=== PATIENT | female | born 1935 | race Caucasian/White ===

== ENCOUNTER 2019-06-15 06:08 | Inpatient (IN) | payer MEDICARE, OTHER ==
[~2019-06-15] VITALS: Ht 162.6 cm; Wt 65.3 kg
[~2019-06-15 06:08] MED LIST: Advil Migraine200 MG PO; Armour Thyroid90 MG PO; BORON PO; CHOLINE PO; COLLAGEN PO; GLUCOSAMINE1000 MG PO; HYALURONIC ACI1 EACH PO; LEVSOD50; MAGCHL64ER PO; MSM PO; OPTIFLEX-C400 MG PO; Percocet 10-321 EACH PO; SILICA PO; VITAMIN D32000 UNIT PO; Zofran Odt4 MG SL
--- NOTE | 2019-06-15 06:45 | NUR ---
PT ADMITTED TO [facility]. AGREES WITH PLANNED SURGERY. LUNG SOUNDS CLEAR. PT STATES 5 DAYS OF MUPIROCIN OINMENT AND CHLORHESIDINE SHOWERS.
--- NOTE | 2019-06-15 07:05 | NUR ---
NOXIN TO NARES BILATERALLY
--- NOTE | 2019-06-15 11:40 | NUR ---
PT MEDICATED WITH TORADOL PER JUSTINE. MANINDER MAIER AT BEDSIDE. PT SIPPING WATER.
--- NOTE | 2019-06-15 13:00 | NUR ---
PT MEDICATED WITH 1 OXY PO PER EMAR. PT TOLERATING PO WITHOUT NAUSEA. NO COMPLAINTS OR NEEDS AT THIS TIME. FAMILY LEAVING FOR LUNCH.
--- NOTE | 2019-06-15 13:20 | NUR ---
PT TO ROOM TO WORK WITH PT.
--- NOTE | 2019-06-15 14:11 | NUR ---
PT SITTING UP IN CHAIR. VOIDED WITH PT. CALL LIGHT IN REACH. PER PHYSICAL THERAPIST, PT VERY WOBBLY AND AT HIGH RISK FOR POTENTIAL DISLOCATION.
--- NOTE | 2019-06-15 15:36 | NUR ---
PT STILL WORKING WITH OT. PT UP IN [place] WITH THERAPIST.
--- NOTE | 2019-06-15 16:45 | NUR ---
PT MEDICATED WITH ANCEF, TYLENOL AND OXYCODONE PER EMAR. PT UP IN CHAIR. ICE TO [facility] REFRESHED.
--- NOTE | 2019-06-15 17:24 | NUR ---
DINNER TRAY PROVIDED.
--- NOTE | 2019-06-15 18:33 | NUR ---
CARE ASSUMED OF PT AT APPROXIMATELY 1730. PT ALERT AND ORIENTED. WILL MONITOR UNTIL REPORT TO ONCOMING RN.
[2019-06-16 04:57] LABS: BASOPHILS ABSOLUTE AUTO 0.01 K/mm3 (0.00-0.23); BASOPHILS PERCENT AUTO 0 % (0-2); EOSINOPHILS ABSOLUTE AUTO 0.02 K/mm3 (0.00-0.68); EOSINOPHILS PERCENT AUTO 0 % (0-6); Hematocrit 31.3 % (33.0-51.0); Hemoglobin 10.4 g/dL (11.5-16.0); IMMATURE GRAN ABSOLUTE AUTO 0.03 K/mm3 (0.00-0.10); IMMATURE GRAN PERCENT AUTO 0 % (0-1); LYMPHOCYTES ABSOLUTE AUTO 1.44 K/mm3 (0.84-5.20); LYMPHOCYTES PERCENT AUTO 14 % (21-46); MONOCYTES ABSOLUTE AUTO 1.05 K/mm3 (0.16-1.47); MONOCYTES PERCENT AUTO 10 % (4-13); Mean Corpuscular HGB 30.7 pg (26.0-34.0); Mean Corpuscular HGB Conc 33.2 g/dL (31.5-36.5); Mean Corpuscular Volume 92 fL (80-100); Mean Platelet Volume 10.2 fL (9.1-12.4); NEUTROPHILS ABSOLUTE AUTO 7.79 K/mm3 (1.96-9.15); NEUTROPHILS PERCENT AUTO 75 % (41-73); Platelet Count 211 K/mm3 (150-400); RDW Coefficient Variation 12.7 % (11.7-14.2); RDW Standard Deviation 42.8 fL (35.1-46.3); Red Blood Cell Count 3.39 M/mm3 (3.80-5.20); White Blood Cell Count 10.34 K/mm3 (4.00-11.30)
[2019-06-16 05:27] LABS: Magnesium, Blood 2.2 mg/dL (1.6-2.4)
[2019-06-16 05:33] LABS: Anion Gap 9 mmol/L (6-16); Blood Urea Nitrogen 17 mg/dL (8-24); Bun/Creatinine Ratio 20.6 (12.0-20.0); CO2, Blood 24 mmol/L (21-32); Calcium, Blood 8.6 mg/dL (8.5-10.1); Chloride, Blood 105 mmol/L (98-108); Creatinine, Blood 0.83 mg/dL (0.40-1.00); Glomerular Filtration Rate >60 (60-); Glucose, Blood 114 mg/dL (70-99); Potassium, Blood 3.9 mmol/L (3.5-5.5); Sodium, Blood 138 mmol/L (136-145)
--- NOTE | 2019-06-16 07:00 | NUR ---
PT APPEARS TO BE SLEEPING, RESP EVEN AND NON LABORED.
--- NOTE | 2019-06-16 07:10 | NUR ---
REPORT FROM AMOR PIERCE. ASSUMED PT CARE.
--- NOTE | 2019-06-16 07:20 | NUR ---
DR NGUYEN TO ROOM FOR RE-EVAL AND DRESSING CHANGE. PT IN BED. PAIN MANAGED AT THIS TIME. ASSESSMENT CHARTED.
--- NOTE | 2019-06-16 07:30 | NUR ---
JESSICA FISH ASSISTING PT TO BSC AND UPT TO CHAIR.
--- NOTE | 2019-06-16 07:48 | NUR ---
SHIFT SUMMARY LYING IN SEMI FOWLERSWITH EYES CLOSED. HAD A GOOD NIGHT. AMBULATED TO BATHROOM AND BACK TO BED A COUPLE OF TIMES. HAD RESTED WELL. PAIN MANAGED PER EMAR. DENIES FURTHER NEEDS OR WANTS AT THIS TIME. SAFETY MEASURES IN PLACE. HAND OFF GIVEN TO Kandy COX RN USING SBAR.
--- NOTE | 2019-06-16 08:33 | NUR ---
PT MEDICATED PER EMAR.
--- NOTE | 2019-06-16 09:05 | NUR ---
PHYSICAL THERAPY IN TO ROOM.
--- NOTE | 2019-06-16 09:30 | NUR ---
PT DENIES PAIN. DENIES NEEDS. CALL LIGHT IN REACH.
--- NOTE | 2019-06-16 10:12 | NUR ---
THIS RN SPOKE WITH PT DAUGHTER IN LAW (WITH PT PERMISSION). DISCUSSED DC PLAN WITH HER. EXPLAINED THAT WHOMEVER IS THE PRIMARY SOLE LAYER IS THEY NEED TO BE PRESENT FOR THERAPY SESSION TO LEARN HOW TO INSTRUCT PT ON PROPER MECHANICS AND MOVING. FAMILY MEMBER STATES DUE TO FAMILY DYNAMICS THAT ISNT POSSIBLE. DISCUSSED POSS SENDING PT TO A REHAB FACILITY. PT FAMILY AGREEABLE. PT FEELS LIKE GROUP HOME/REHAB IS MOST APPROPRIATE.
--- NOTE | 2019-06-16 10:29 | NUR ---
THERAPY AT CHAIRSIDE.
--- NOTE | 2019-06-16 12:01 | NUR ---
PT SITTING UP IN CHAIR EATING LUNCH. NO COMPLAINTS AT THIS TIME.
--- NOTE | 2019-06-16 12:11 | NUR ---
PT MEDICATE WITH TORADOL PER EMAR. PT CALL LIGHT IN REACH.
[2019-06-16] MEDS ORDERED: ENOX30I SC (12:31)
[2019-06-16] MEDS ORDERED: ROXICODONE5 MG PO (12:32)
[2019-06-16] MEDS ORDERED: PROM25 PO (12:33)
--- NOTE | 2019-06-16 12:59 | NUR ---
Patient is sitting on a chair and alert. Patient tells me that I made a difference in her 's life and gave him the peace that he needed while he was a patient in the hospital a few weeks back. She then tells me that he 12 days after he went home. Patient also talks about her current surgery and and her concerns about going home because of lack of resources and support. Patient tells me the history of her tumultuous relationship with her and the history of her spiritual journey. I listen empathically, conduct a life review, explore patient's belief system, normalize patient's experience, reinforce helpful attitudes and practices and provide prayer. Patient responds well and displays evidence of reduced stress and restored lion. Patient voices appreciation for the visit.
--- NOTE | 2019-06-16 13:25 | NUR ---
PT TO [facility] FOR THERAPY.
--- NOTE | 2019-06-16 15:02 | NUR ---
RX FAXED TO [facility] PER PT FAMILY REQUEST. PT SITTING UP IN CHAIR.
--- NOTE | 2019-06-16 15:05 | NUR ---
recvd report from previous RN, assumed care of pt, pt sitting up in recliner, call light within reach
--- NOTE | 2019-06-16 16:00 | NUR ---
[facility] refersanthosh Gonzalez to speak with pt about home health referral. Jossie left home health face to face for Dr. Muse to modify. paperwork in chart. will provide next shift RN with instructions to give day shift RN tomorrow.
--- NOTE | 2019-06-16 18:50 | NUR ---
pt remained a/0 x 4, pleasant/cooperative. pt tolerated PO intake with no n/v. pt requested prune juice, was provided with this. pt states pain controlled to her satisfaction. no n/v, up in chair until returned to bed following dinner
--- NOTE | 2019-06-17 06:29 | NUR ---
SHIFT SUMMARY HAS HAD A GOOD NIGHT AND RESTED WELL LYING IN SEMI FOWLERS WITH EYES CLOSED. AMBULATED TO BATHROOM AND BACK TO BED A SEVERAL TIMES. PAIN MANAGED PER EMAR. DENIES FURTHER NEEDS OR WANTS AT THIS TIME. SAFETY MEASURES IN PLACE. HAND OFF TO BE GIVEN TO ONCOMING SHIFT USING SBAR.
[2019-06-17] MEDS ORDERED: ASPI325EC PO (08:11)
[2019-06-17] MEDS ORDERED: Bactrim Ds Tab1 EACH PO (08:12)
[2019-06-17] MEDS ORDERED: CLIN300 PO (08:12)
--- NOTE | 2019-06-17 08:56 | NUR ---
DISCHARGED TO HOME WITH FAMILY
--- NOTE | 2019-06-17 09:27 | NUR ---
[id number] FAMILY MEMBERS HERE. REVIEWED DISCHARGE INSTRUCTIONS WITH PATIENT AND HER FAMILY AND QUESTIONS ANSWERED
== END 2019-06-17 08:56 | disposition home or self-care (01) | DRG 470 ==
LOC: SURS 06:08 → PRE IP 07:30 → SURS 10:21
PROVIDERS: ADMIT Orthopaedic Surgery
PROC: 0SR904A Replacement of Right Hip Joint with Ceramic on Polyethylene Synthetic Substitute, Uncemented, Open Approach (ICD-10-PCS; principal; 2019-06-15 07:30)
DX: M16.11 Unilateral primary osteoarthritis, right hip (principal)
CPT/HCPCS: 36415; 72170; 80048; 83735; 85025; 88300; 97110; 97116; 97162; 97166; 97530; 97535; C1713; C1776; J0171; J0690; J0735; J1100; J1650; J1885; J2250; J2370; J2405; J2704; J2710; J2795; J3010; J3370; J7120

== ENCOUNTER → 2019-09-21 | Outpatient (CLI) | payer MEDICARE, OTHER ==
[~2019-09-21] MED LIST changes: +ASPI325EC PO; +Bactrim Ds Tab1 EACH PO; +CLIN300 PO; +ENOX30I SC; +PROM25 PO; +ROXICODONE5 MG PO
== END | disposition home or self-care (01) ==
LOC: LAB 13:20 → LAB SHORT 13:20
DX: E03.9 Hypothyroidism, unspecified (principal)
CPT/HCPCS: 84443

== ENCOUNTER → 2024-04-20 | Outpatient (CLI) | payer OTHER ==
[2024-04-20 19:01] LABS: BASOPHILS ABSOLUTE AUTO 0.03 K/mm3 (0.00-0.23); BASOPHILS PERCENT AUTO 1 % (0-2); EOSINOPHILS ABSOLUTE AUTO 0.08 K/mm3 (0.00-0.68); EOSINOPHILS PERCENT AUTO 2 % (0-6); Hematocrit 40.4 % (33.0-51.0); Hemoglobin 13.3 g/dL (11.5-16.0); IMMATURE GRAN ABSOLUTE AUTO 0.01 K/mm3 (0.00-0.10); IMMATURE GRAN PERCENT AUTO 0 % (0-1); LYMPHOCYTES ABSOLUTE AUTO 1.16 K/mm3 (0.84-5.20); LYMPHOCYTES PERCENT AUTO 23 % (21-46); MONOCYTES ABSOLUTE AUTO 0.45 K/mm3 (0.16-1.47); MONOCYTES PERCENT AUTO 9 % (4-13); Mean Corpuscular HGB 30.6 pg (26.0-34.0); Mean Corpuscular HGB Conc 32.9 g/dL (31.5-36.5); Mean Corpuscular Volume 93 fL (80-100); Mean Platelet Volume 10.9 fL (9.1-12.4); NEUTROPHILS ABSOLUTE AUTO 3.24 K/mm3 (1.96-9.15); NEUTROPHILS PERCENT AUTO 65 % (41-73); Platelet Count 293 K/mm3 (150-400); RDW Coefficient Variation 12.3 % (11.7-14.2); RDW Standard Deviation 42.5 fL (35.1-46.3); Red Blood Cell Count 4.35 M/mm3 (3.80-5.20); White Blood Cell Count 4.97 K/mm3 (4.00-11.30)
[2024-04-20 19:20] LABS: Free Thyroxine 1.36 ng/dL (0.70-1.60)
[2024-04-20 19:26] LABS: Alanine Aminotransfer (ALT/SGP 22 U/L (12-78); Albumin, Blood 4.1 g/dL (3.4-5.0); Albumin/Globulin Ratio 1.3 (0.8-1.8); Alk Phos 75 U/L (50-136); Anion Gap 7 mmol/L (3-11); Aspartate Aminotrans (AST/SGOT 24 U/L (12-37); Bilirubin, Total 0.4 mg/dL (0.1-1.0); Blood Urea Nitrogen 18 mg/dL (8-24); Bun/Creatinine Ratio 23.7 (12.0-20.0); CO2, Blood 26 mmol/L (21-32); Calcium, Blood 9.3 mg/dL (8.5-10.1); Chloride, Blood 109 mmol/L (98-108); Creatinine, Blood 0.76 mg/dL (0.40-1.00); Globulin, Blood 3.2 g/dL (2.2-4.0); Glomerular Filtration Rate 75 (60-); Glucose, Blood 115 mg/dL (70-99); Potassium, Blood 4.9 mmol/L (3.5-5.5); Sodium, Blood 137 mmol/L (136-145); Thyroid Stimulating Hormone <0.005 uIU/mL (0.360-4.800); Total Protein, Blood 7.3 g/dL (6.4-8.2)
== END ==
LOC: LAB SHORT 18:00 → LAB 18:00
PROVIDERS: Nurse Practitioner Family
DX: E03.9 Hypothyroidism, unspecified (principal); E55.9 Vitamin D deficiency, unspecified; I10 Essential (primary) hypertension; R73.01 Impaired fasting glucose
CPT/HCPCS: 80053; 82306; 83036; 84439; 84443; 85025

== ENCOUNTER → 2025-06-01 | Outpatient (CLI) | payer OTHER ==
[2025-06-01 13:12] LABS: BASOPHILS ABSOLUTE AUTO 0.04 K/mm3 (0.00-0.23); BASOPHILS PERCENT AUTO 1 % (0-2); EOSINOPHILS ABSOLUTE AUTO 0.07 K/mm3 (0.00-0.68); EOSINOPHILS PERCENT AUTO 1 % (0-6); Hematocrit 38.2 % (33.0-51.0); Hemoglobin 12.7 g/dL (11.5-16.0); IMMATURE GRAN ABSOLUTE AUTO 0.01 K/mm3 (0.00-0.10); IMMATURE GRAN PERCENT AUTO 0 % (0-1); LYMPHOCYTES ABSOLUTE AUTO 0.94 K/mm3 (0.84-5.20); LYMPHOCYTES PERCENT AUTO 13 % (21-46); MONOCYTES ABSOLUTE AUTO 0.45 K/mm3 (0.16-1.47); MONOCYTES PERCENT AUTO 6 % (4-13); Mean Corpuscular HGB Conc 33.2 g/dL (31.5-36.5); Mean Corpuscular Volume 92 fL (80-100); NEUTROPHILS ABSOLUTE AUTO 5.58 K/mm3 (1.96-9.15); NEUTROPHILS PERCENT AUTO 79 % (41-73); NRBC ABSOLUTE 0.00 K/mm3 (0.00-0.02); NRBC Auto 0.0 /100 WBC (0.0-0.2); Platelet Count 311 K/mm3 (150-400); RDW Coefficient Variation 12.6 % (11.7-14.2); RDW Standard Deviation 42.8 fL (35.1-46.3)
[2025-06-01 14:02] LABS: Alanine Aminotransfer (ALT/SGP 23 U/L (12-78); Albumin, Blood 3.7 g/dL (3.4-5.0); Albumin/Globulin Ratio 1.2 (0.8-1.8); Anion Gap 8 mmol/L (3-11); Aspartate Aminotrans (AST/SGOT 19 U/L (12-37); Bilirubin, Total 0.5 mg/dL (0.1-1.0); Blood Urea Nitrogen 18 mg/dL (8-24); CHOL/HDL RATIO 2.3; CO2, Blood 27 mmol/L (21-32); Calcium, Blood 8.9 mg/dL (8.5-10.1); Chloride, Blood 106 mmol/L (98-108); Cholesterol 176 mg/dL (50-200); Creatinine, Blood 0.81 mg/dL (0.40-1.00); Globulin, Blood 3.1 g/dL (2.2-4.0); Glucose, Blood 103 mg/dL (70-99); HDL Cholesterol 77 mg/dL (>39); LDL/HDL RATIO 1.1; Low Density Lipoprotein Chol 88 mg/dL (0-110); Potassium, Blood 4.3 mmol/L (3.5-5.5); Sodium, Blood 137 mmol/L (136-145); Thyroid Stimulating Hormone 0.008 uIU/mL (0.360-4.800); Total Protein, Blood 6.8 g/dL (6.4-8.2); Triglycerides 56 mg/dL (30-160); Very Low Density Lipoprot Chol 11 mg/dL (6-32)
== END | disposition home or self-care (01) ==
LOC: LAB 12:31 → LAB SHORT 12:31
PROVIDERS: Nurse Practitioner Family
DX: I10 Essential (primary) hypertension (principal); E03.9 Hypothyroidism, unspecified
CPT/HCPCS: 80053; 80061; 84439; 84443; 85025